=== PATIENT | female | born 2000 | race Hispanic/Latino ===

== ENCOUNTER 2022-09-04 14:44 | Observation (INO) | payer OTHER, BC ==
[2022-09-04] MEDS ORDERED: Morphine 4 MG/ML VIAL ONE (15:00)
[2022-09-04] MEDS ORDERED: Ondansetron PF 4 MG/2 ML Vial ONE (15:01)
[2022-09-04 15:31] LABS: #Eosinphils 0.1 thou/uL (0.0-0.7); #Monocytes 0.5 thou/uL (0.11-0.59); #Neutrophils 4.5 thou/uL (1.40-6.50); %Basophils 0.5 % (0.0-1.0); %Eosinophils 0.9 % (0.0-10.0); %Lymphocytes 35.6 % (21.0-51.0); %Monocytes 5.7 % (0.0-10.0); Hemoglobin 13.6 g/dL (12.0-16.0); Mean Corpuscular HGB CONC 33.5 g/dL (32.0-36.0); Mean Corpuscular Hemoglobin 30.1 pg (27.0-31.0); Mean Corpuscular Volume 89.8 fl (78.0-98.0); Mean Platelet Volume 10.5 fL (7.4-10.4); Platelet Count 270 10x3/uL (130-400); RBC Distribution Width 11.6 % (11.5-14.5); Red Blood Cell (RBC) Count 4.52 mill/uL (4.20-5.40); White Blood Cell (WBC) Count 7.9 10x3/uL (4.8-10.8)
[2022-09-04 15:37] LABS: BHCG - Serum Negative (NEGATIVE); Pregs Control Background? CLEAR/WHITE (CLR/WHITE); Pregs Control Bar Appear? YES (CONTROL BAR)
[2022-09-04 15:56] LABS: ALT (SGPT) 11 U/L (8-55); AST (SGOT) 14 U/L (5-34); Albumin 4.4 g/dL (3.5-5.0); Alkaline Phosphatase 47 U/L (40-110); Anion Gap 11 mmol/L (10-20); BUN (Urea Nitrogen) 11 mg/dL (7.0-18.7); Bilirubin, Total 0.4 mg/dL (0.2-1.2); Calc. Creatinine Clearance 0 mL/min (70-130); Calcium 9.3 mg/dL (7.8-10.44); Carbon Dioxide 20 mmol/L (22-29); Chloride 106 mmol/L (98-107); Estimated GFR 118; Globulin 2.6 g/dL (2.4-3.5); Glucose 135 mg/dL (70-105); Potassium 3.4 mmol/L (3.5-5.1); Sodium 134 mmol/L (136-145)
[2022-09-04] MEDS ORDERED: Ketamine 50 MG/ML (10ML VIAL) ONE (15:57)
[2022-09-04] MEDS ORDERED: Dextrose 50% Abboject 50 ML SYRINGE SLOW IVP PRN (17:46)
[2022-09-04] MEDS ORDERED: Morphine 4 MG/ML VIAL SLOW IVP PRN (17:46)
[2022-09-04] MEDS ORDERED: Dextrose 5% in Water 1,000 ML IV PRN (17:46)
[2022-09-04] MEDS ORDERED: Morphine 2 MG/ML VIAL SLOW IVP PRN (17:46)
[2022-09-04] MEDS ORDERED: Ipratropium/Albuterol 3 ML NEB NEB PRN (17:46)
[2022-09-04] MEDS ORDERED: Glucagon 1 MG/ML KIT IM PRN (17:46)
[2022-09-04] MEDS ORDERED: Ibuprofen 800 MG TAB PO PRN (17:49)
[2022-09-04] MEDS ORDERED: traMADol HCl 50 MG TAB PO PRN (17:49)
[2022-09-04] MEDS ORDERED: Melatonin 3 MG TAB PO PRN (17:49)
[2022-09-04] MEDS ORDERED: Potassium Chloride 20 MEQ TAB PO SCH (18:00)
[2022-09-04 20:48] VITALS: BMI 21.6
[2022-09-04] MEDS: traMADol HCl 50 MG TAB PO SCH (22:08)
[2022-09-04] MEDS: Famotidine 20 MG TAB PO SCH (22:09)
[2022-09-04] MEDS: Acetaminophen 500 MG TAB PO SCH (22:10)
[2022-09-04] MEDS ORDERED: Sodium Chloride 0.9% 1,000 ML IV SCH (23:55)
[2022-09-05] MEDS: Acetaminophen 500 MG TAB PO SCH ×2 (02:26→07:00)
[2022-09-05] MEDS: traMADol HCl 50 MG TAB PO SCH ×2 (02:26→06:59)
[2022-09-05 06:30] LABS: ALT (SGPT) 10 U/L (8-55); AST (SGOT) 14 U/L (5-34); Alkaline Phosphatase 44 U/L (40-110); Anion Gap 12 mmol/L (10-20); BUN (Urea Nitrogen) 8 mg/dL (7.0-18.7); Bilirubin, Total 0.3 mg/dL (0.2-1.2); Calc. Creatinine Clearance 112 mL/min (70-130); Calcium 8.9 mg/dL (7.8-10.44); Carbon Dioxide 18 mmol/L (22-29); Chloride 113 mmol/L (98-107); Estimated GFR 118; Globulin 2.3 g/dL (2.4-3.5); Glucose 91 mg/dL (70-105); Potassium 4.3 mmol/L (3.5-5.1); Protein, Total 6.3 g/dL (6.0-8.3); Sodium 139 mmol/L (136-145)
[2022-09-05] MEDS: Famotidine 20 MG TAB PO SCH (08:14)
[2022-09-05] MEDS ORDERED: CEFAZOLIN 2 GM in Sodium Chloride 0.9% 100 ML IVPB SCH ×2 (09:00→19:00)
[2022-09-05] MEDS ORDERED: fentaNYL 50 mcg/mL 1 mL Vial ONE (09:26)
[2022-09-05] MEDS ORDERED: Midazolam HCl 2 mg/2 ml Vial ONE (09:26)
[2022-09-05] MEDS ORDERED: Bupivacaine PF 0.5% 30 ML VIAL ONE (09:26)
[2022-09-05] MEDS ORDERED: fentaNYL PF 100 MCG/2 ML SYRINGE ONE (10:48)
[2022-09-05] MEDS ORDERED: fentaNYL 50 mcg/mL 1 mL Vial SLOW IVP PRN (11:04)
[2022-09-05] MEDS ORDERED: CEFAZOLIN 2 GM VIAL ONE (11:04)
[2022-09-05] MEDS ORDERED: Sodium Chloride 0.9% 100 ML ONE (11:04)
[2022-09-05] MEDS ORDERED: Promethazine HCl 25 MG/ML VIAL IM PRN (11:15)
[2022-09-05] MEDS ORDERED: HYDROcodone/Acetaminophen 10/325 mg Tablet PO PRN ×2 (11:15)
[2022-09-05] MEDS ORDERED: traMADol HCl 50 MG TAB PO PRN ×2 (11:15)
[2022-09-05] MEDS ORDERED: Ondansetron PF 4 MG/2 ML Vial IVP PRN (11:15)
[2022-09-05] MEDS ORDERED: Zolpidem Tartrate 5 MG TAB PO PRN (11:15)
[2022-09-05] MEDS ORDERED: Ropivacaine 0.2% 550 ML 550 ML NERVE BLCK SCH (11:15)
[2022-09-05] MEDS ORDERED: Ondansetron PF 4 MG/2 ML Vial ONE (11:17)
[2022-09-05] MEDS ORDERED: PROPOFOL 200 MG/20 ML VIAL ONE (11:17)
[2022-09-05] MEDS ORDERED: Sevoflurane 250 ML INH ANEST BOTTLE ONE (11:23)
[2022-09-05] MEDS ORDERED: Ketorolac Tromethamine 30 MG/ML VIAL IVP SCH (12:00)
[2022-09-05] MEDS ORDERED: Ropivacaine 0.5% HCl/PF (150 MG/30 ML VIAL) ONE (13:28)
[2022-09-05 15:44] VITALS: BP 103/69; TEMP 97.9
== END 2022-09-05 16:10 | disposition home or self-care (01) ==
LOC: ERS 14:44 → T4-A 17:46
PROVIDERS: ADMIT Surgery; ATTEND Surgery
PROC: 0PSH06Z Reposition Right Radius with Intramedullary Internal Fixation Device, Open Approach (ICD-10-PCS; principal; 2022-09-05)
DX: S52.321A Displaced transverse fracture of shaft of right radius, initial encounter for closed fracture (principal); E03.9 Hypothyroidism, unspecified; Z79.890 Hormone replacement therapy; Z90.89 Acquired absence of other organs; V89.2XXA Person injured in unspecified motor-vehicle accident, traffic, initial encounter
CPT/HCPCS: 25505; 36415; 71045; 80053; 84703; 85025; 86850; 86900; 86901; 96374; 96375; 99152; 99156; A4306; C1713; G0378; G0390; J2250; J2270; J2405; J2704; J2795; J3010; J3490; J7050; S0020

== ENCOUNTER 2023-08-04 10:05 | Day surgery (SDC) | payer BC ==
[2023-07-31 15:45] VITALS: BMI 21.6
[2023-08-04] MEDS ORDERED: CEFAZOLIN 2 GM VIAL ONE (12:02)
[2023-08-04] MEDS ORDERED: Sodium Chloride 0.9% 100 ML ONE (12:02)
[2023-08-04] MEDS ORDERED: PROPOFOL 20 ML ONE (12:16)
[2023-08-04] MEDS ORDERED: Lidocaine 2% PF 5 ML VIAL ONE (12:17)
[2023-08-04] MEDS ORDERED: Midazolam HCl 2 mg/2 ml Vial ONE (12:34)
[2023-08-04] MEDS ORDERED: fentaNYL PF 100 MCG/2 ML SYRINGE ONE (12:47)
[2023-08-04] MEDS ORDERED: Ketorolac Tromethamine 30 MG (1 mL) VIAL ONE (12:51)
[2023-08-04] MEDS ORDERED: Ondansetron PF 4 MG/2 ML Vial ONE (12:51)
[2023-08-04] MEDS ORDERED: Dexamethasone 20 MG/5 ML VIAL ONE (12:51)
[2023-08-04] MEDS ORDERED: Dexmedetomidine 200 MCG/2 ML VIAL ONE (13:01)
[2023-08-04] MEDS ORDERED: ePHEDrine Sulfate 50 MG/10 ML VIAL ONE (13:13)
[2023-08-04] MEDS ORDERED: Meperidine HCl/PF 25 MG (1 mL) VIAL ONE (13:39)
[2023-08-04] MEDS ORDERED: fentaNYL 50 mcg/mL 1 mL Vial ONE ×2 (13:39→13:53)
[2023-08-04] MEDS ORDERED: HYDROcodone/Acetaminophen 5/325 mg Tablet ONE (14:46)
== END 2023-08-04 15:20 | disposition home or self-care (01) ==
LOC: SDC 10:05
PROVIDERS: ATTEND Orthopaedic Surgery
PROC: 0KC90ZZ Extirpation of Matter from Right Lower Arm and Wrist Muscle, Open Approach (ICD-10-PCS; principal; 2023-08-04)
DX: T85.848A Pain due to other internal prosthetic devices, implants and grafts, initial encounter (principal); Y83.2 Surgical operation with anastomosis, bypass or graft as the cause of abnormal reaction of the patient, or of later complication, without mention of misadventure at the time of the procedure
CPT/HCPCS: J1100; J1885; J2001; J2175; J2250; J2405; J2704; J3010; J3490